=== PATIENT | female | born 1965 ===

== ENCOUNTER 2019-01-26 07:45 | Inpatient (IN) | payer OTHER ==
[2019-01-20 10:36] VITALS: BMI 26.9
[2019-01-26] MEDS ORDERED: Bupivacaine HCl 0.5% PF (10 ml) Inj ONE (09:41)
[2019-01-26] MEDS ORDERED: ceFOXitin IV 1 gm/100 ml in NS 2 GM/200 ML BAG ONE (09:42)
[2019-01-26] MEDS ORDERED: Methylene Blue 10 mg/mL(10ml) IV ONE (09:44)
[2019-01-26] MEDS ORDERED: Propofol 10 mg/ml Inj (20 ML) ONE (10:08)
[2019-01-26] MEDS ORDERED: Midazolam 2 MG/2 ML VIAL ONE (10:08)
[2019-01-26] MEDS ORDERED: Rocuronium 10 mg/ml (5 ml) ONE (10:51)
[2019-01-26] MEDS ORDERED: Clindamycin 2% Vaginal Cream(40 gm) ONE (11:59)
[2019-01-26] MEDS ORDERED: Dexamethasone 4 mg/1 ml IVP PRN (12:40)
[2019-01-26] MEDS ORDERED: HYDROmorphone 0.5 mg/0.5 ml ISec IVP PRN (12:40)
[2019-01-26] MEDS ORDERED: DiphenhydrAMINE 50 mg/ml Inj IVP STA (12:54)
--- NOTE | 2019-01-26 13:59 | PCM.SURG1 ---
Surgeon's Initial Post Op Note - Surgeon's Notes Surgeon: Human Resource Management Instructor: Dr. King Type of Anesthesia: General Endo Anesthesia Administered By: Dr. Lynn Pre-Operative Diagnosis: 53 yo with Cervical Dysplasia, Menorrhagia, Irregular menstrual Cycle and Failure of medical thearpy Operative Findings: Av uterus multiple adhesion anterior , Left Ovarian cyst Post-Operative Diagnosis: sAME ABOVE Operation Performed: Laparoscopy Total Hysterectomy, Left Salpingoophorectomy, Right Salpingectomy, VISH , Cystoscopy Specimen/Specimens Removed: Uterus, cervix and Left tube and ovary, Right Tube Estimated Blood Loss: EBL {In ML}: 100 Blood Products Given: N/A Drains Used: No Drains Post-Op Condition: Good Date of Surgery/Procedure: 01/26/19 Time of Surgery/Procedure: 14:00
[2019-01-26] MEDS ORDERED: Oxycodone/Acetaminophen 5/325 mg Tab PO PRN (14:00)
[2019-01-26] MEDS ORDERED: cefOXitin IV 2 gm in Dextrose 2 GM/50 ML BAG IVPB SCH (14:00)
[2019-01-26] MEDS: cefOXitin IV 2 gm in Dextrose 2 GM/50 ML BAG IVPB SCH (17:36)
[2019-01-26] MEDS ORDERED: DiphenhydrAMINE 50 mg/ml Inj ONE (21:52)
[2019-01-27] MEDS: cefOXitin IV 2 gm in Dextrose 2 GM/50 ML BAG IVPB SCH ×2 (02:22→10:00)
[2019-01-27 08:39] LABS: HEMOGLOBIN 11.4 g/dL (11.0-16.0); MEAN CELL VOLUME 95.7 fL (81.0-99.0); MEAN CORPUSCULAR HEMOGLOBIN 31.7 pg (27.0-31.0); MEAN CORPUSCULAR HGB CONC 33.1 g/dL (33.0-37.0); MEAN PLATELET VOLUME 8.7 fL (7.2-11.7); RBC 3.6 Mil/uL (3.80-5.20); RED CELL DISTRIBUTION WIDTH 12.6 % (11.5-14.5); WHITE BLOOD COUNT 14.5 K/uL (4.8-10.8)
[2019-01-27 16:12] VITALS: BP 132/89; PULSE 96; RESP 18; TEMP 98; O2SAT 99
[2019-01-27] MEDS ORDERED: Influenza Vaccine 60 mcg/0.5 mL SYR (4YR UP) IM ONE (17:48)
--- NOTE | 2019-02-04 06:48 | OP ---
PROCEDURE DATE: 01/26/2019 PREOPERATIVE DIAGNOSES: A 53-year-old female with menorrhagia, fibroid uterus as well as abnormal Papanicolaou smear, high-grade cervical dysplasia. POSTOPERATIVE DIAGNOSES: A 53-year-old female with menorrhagia, fibroid uterus as well as abnormal Papanicolaou smear, high-grade cervical dysplasia. PROCEDURES: Laparoscopic total hysterectomy, bilateral salpingectomy as well as cystoscopy post total laparoscopic hysterectomy. SURGEON: Nicole Mai MD LAUNDRY MACHINE OPERATOR: Marlene King MD TYPE OF ANESTHESIA: General anesthesia with ET tube. OPERATIVE FINDINGS: Bulky uterus with normal tubes and ovaries. SPECIMEN: Uterus with cervix attached as well as bilateral tubes. ESTIMATED BLOOD LOSS: Approximately 50 mL. DESCRIPTION OF PROCEDURE: The patient was taken to the operating room where a time-out procedure was performed to confirm the correct patient and the correct procedure. Informed consent have been obtained and confirmed on the day of the surgery. All the risks of laparoscopic hysterectomy were explained including but not limited to bleeding, infection, injury to surrounding organs such as large bowel, small bowel, bladder, and tissue. The patient was counseled that was not possible following a hysterectomy and the patient expressed comprehension of this. She was counseled regarding removing the bilateral ovaries, that if removed she would be into menopause immediately. The patient also expressed understanding and comprehension of this. Additionally, she was counseled that a hysterectomy may not necessarily resolve or make resolution of her chronic pelvic pain. The patient expressed understanding of all the risks involved, all questions were answered and the patient consented to the procedure. The patient was given preoperative prophylactic IV antibiotics and general anesthesia was established. The patient was then positioned in the operating room in a lithotomy position with the legs supported using Isaac stirrups. All pressure points were padded and Rocky Hugger was placed to maintain control of her core body temperature. The patient's arm were then carefully tucked to the side. The patient was then prepped and draped in a normal sterile fashion. A Anaya catheter was sterilely inserted into the bladder, which drained clear urine. At this point, a weighted speculum was placed into the vagina and the anterior lip of the cervix was grasped with single-toothed tenaculum. The uterus was gently sounded and a VCare device was then placed in order to manipulate the uterine cavity. In that particular instance, upon that, all instruments were removed from the vagina and attention was turned to the abdomen. A 5-mm vertical infraumbilical incision was made with the scalpel after infiltration of the skin with 0.25 of Marcaine, a see-through incision into the peritoneal cavity. Intraabdominal placements was obtained visually and the grasper was connected to the gas port on the trocar. The abdomen was insufflated with approximately 5 L of CO2 gas. The smoke evacuator was connected and visualization of the pelvis resulted. The uterus was enlarged and bulky, but had overall a normal anatomy. Next, a 5-mm incision was made on the right lower quadrant under direct visualization after infiltration of the skin with 0.25 Marcaine. Avascular site was selected for the incision after transilluminating the right lower quadrant with the scope. A second trocar was placed to the right lower quadrant incision. Next, a 5-mm incision was made in the left lower quadrant also while transilluminating the lower abdomen. The skin was infiltrated with 0.25 of Marcaine. A third trocar was inserted under visualization. Once again, the visualization of the pelvis revealed a normal uterus. The tubes and ovaries appear normally bilaterally. At this particular point, a complete visualization was performed of the abdomen, so the LigaSure was utilized. In that particular instance, the right round ligament was basically resected with the LigaSure and the right round ligament was resected with the LigaSure as well as the right broad ligament was entered and the retroperitoneum was visualized. The iliac vessels on the right ureter could be seen. The bladder flap was began on the right side. The uterine artery was identified and the LigaSure was utilized to cauterize and resect. Next, the right cornual ligaments were resected with the LigaSure. The instruments were then switched to the ports and the same procedure was carried on to the left side. The LigaSure identified the left tube. The ovarian ligaments were resected with the LigaSure. The left broad ligament and round ligament were resected with the LigaSure and excellent hemostasis was noted. The ureter and the iliac vessels were visualized in the retroperitoneal space on the left side. The bladder flap was completed. The uterine vessels and the cornual ligaments on the left side were then resected with the LigaSure. Once we were at the point of the upper portion of the cervix, the VCare device was visualized. In that particular instance, the monopolar hook was utilized. Circumferential, it was cauterized and cut under direct visualization. There were no injuries to surrounding organs. Good hemostasis was achieved. Prior to removing the uterus together with cervix and the vagina, we once visualized the right tube and ovary. With an atraumatic grasper, the right tube was held and the LigaSure device was utilized to remove the right tube as well as the left tube and excellent hemostasis was noted. Once that was completed, the uterus, the cervix, and the tubes were delivered through the vagina. The vaginal cuff was closed from below with a 1-0 Vicryl. Excellent hemostasis was noted and once that was closed, again a surveillance of cavity was then performed. It was noted that the pelvis was irrigated and good hemostasis was noted. The uterus was isolated and visualized bilaterally and was found to have free flowing of normal size with good peristalsis. All pedicles were inspected and the cervical stump was inspected as well. Good hemostasis was assured. Then, gas was allowed to escaped from the abdomen. Once again, all the pedicles were examined under low pressure and were found to be hemostatic. FloSeal was utilized and placed at the vaginal cuff. All ports were removed. The incisions were closed with 4-0 Monocryl of the skin. At the end of the procedure, the Anaya was draining some blue urine because she received FloSeal. A cystoscopy was performed and in that particular instance, green was seen ejecting from both urethral jets. The cystoscopy was then removed. The patient tolerated the procedure well and went to the recovery room in stable condition. Nicole Mai MD
== END 2019-01-27 17:50 | disposition home or self-care (01) | DRG 513 ==
LOC: C.SDS 07:45 → C.9S 12:47 → C.4M 14:11
PROVIDERS: ADMIT Obstetrics & Gynecology; ATTEND Obstetrics & Gynecology
PROC: 0TJB8ZZ Inspection of Bladder, Via Natural or Artificial Opening Endoscopic (ICD-10-PCS; 2019-01-26)
PROC: 0UT9FZZ Resection of Uterus, Via Natural or Artificial Opening With Percutaneous Endoscopic Assistance (ICD-10-PCS; principal; 2019-01-26 09:00)
PROC: 0UT7FZZ Resection of Bilateral Fallopian Tubes, Via Natural or Artificial Opening With Percutaneous Endoscopic Assistance (ICD-10-PCS; 2019-01-26 09:00)
DX: R87.613 High grade squamous intraepithelial lesion on cytologic smear of cervix (HGSIL) (principal); N73.6 Female pelvic peritoneal adhesions (postinfective); N83.12 Corpus luteum cyst of left ovary; N83.02 Follicular cyst of left ovary; N80.0 Endometriosis of uterus; N92.1 Excessive and frequent menstruation with irregular cycle